=== PATIENT | male | born 1930 | race Caucasian/White ===

== ENCOUNTER 2018-02-28 06:21 | Day surgery (SDC) | payer MEDICARE ==
[~2018-02-28] VITALS: Ht 175.4 cm; Wt 75.1 kg
[~2018-02-28 06:21] MED LIST: ALBUTEROL0.83 MG/ML IH; ASPIRIN 81M81 MG/TA2 PO; BENADRYL25 M2 PO; COREG12.5 MG PO; EFFIENT10 MG PO; FISH OIL SUPER1 SGL PO; HYDROCORT CREAM1% TP; KEPPRA1000 MG PO; LIPITOR20 MG PO; LORTAB 5/500 501 TAB PO; NITROSTAT0.4 MG/TAB SL; NORVASC 10MG10 MG PO; OMEGA-31 SGL PO; PRILOTC PO; PRINIVIL10 MG PO; TRIAMCINOLONE0.5% TP; TUSSIONEX PO; VITAMIN D31000 IU PO; ZYRTEC 10MG10 MG PO; [UNRECOGNIZED DRUG - OTHER] IH
[2018-02-28 06:52] LABS: HEMOGLOBIN 11.7 g/dl (13.5-18.0); MEAN CELL VOLUME 87 fl (80.0-100.0); MEAN CORPUSCULAR HEMOGLOBIN 31 pg (27.0-31.0); MEAN CORPUSCULAR HGB CONC 36 g/dl (33.0-37.0); MEAN PLATELET VOLUME 7.9 fl (7.4-10.4); PLATELET COUNT 301 K/mm3 (130-400); RED BLOOD COUNT 3.78 M/mm3 (4.20-5.60); REDCELL DISTRIBUTION WIDTH-CV 12.5 % (11.5-14.5)
[2018-02-28 06:53] LABS: HEMATOCRIT 32.7 % (42.0-52.0)
[2018-02-28 07:06] LABS: CALCIUM 9.2 mg/dL (8.4-10.2); CREATININE, serum 0.8 mg/dL (0.66-1.25); POTASSIUM 4.6 mmol/L (3.4-5.0)
[2018-02-28 07:11] LABS: INR 1.3 (0.8-3.0); PROTHROMBIN TIME 14.2 SECONDS (9.7-12.8)
[2018-02-28] MEDS ORDERED: AVAPRO300 M1 PO (08:07)
[2018-02-28] MEDS ORDERED: PLAVIX 75MG TAB75 MG PO (08:07)
[2018-02-28] MEDS ORDERED: FLONASEALLERGY NS (08:09)
[2018-02-28] MEDS ORDERED: ZETIA 10MG TAB10 MG PO (08:09)
[2018-02-28] MEDS ORDERED: PULMICORT0.5 MG/2 M IH (08:10)
[2018-02-28] MEDS ORDERED: BROVANA15 MCG/2 M IH (08:11)
[2018-02-28] MEDS ORDERED: TYLENOL 325MG325 MG PO (08:14)
[2018-02-28] MEDS ORDERED: COLACE 100100 MG/CAP PO (08:14)
[2018-02-28] MEDS ORDERED: ULTRAM 50MG TAB50 MG PO (08:15)
[2018-02-28 08:38] VITALS: BP 155/70; PULSE 83; TEMP 98
[2018-02-28] MEDS ORDERED: ELIQUIS 5MG PO (08:46)
[2018-02-28] MEDS ORDERED: MULTAQ400 MG PO (08:46)
== END 2018-02-28 09:36 | disposition home or self-care (01) ==
LOC: COL.CAR 06:21
PROVIDERS: Internal Medicine Cardiovascular Disease
DX: I48.92 Unspecified atrial flutter (principal); I49.9 Cardiac arrhythmia, unspecified; I25.10 Atherosclerotic heart disease of native coronary artery without angina pectoris; Z95.1 Presence of aortocoronary bypass graft; I35.0 Nonrheumatic aortic (valve) stenosis; Z79.01 Long term (current) use of anticoagulants; I10 Essential (primary) hypertension; Z79.899 Other long term (current) drug therapy; Z87.891 Personal history of nicotine dependence; Z86.73 Personal history of transient ischemic attack (TIA), and cerebral infarction without residual deficits